=== PATIENT | female | born 1935 | race Caucasian/White ===

== ENCOUNTER 2017-12-13 11:46 | Emergency (ER) | payer MEDICARE, OTHER ==
[~2017-12-13] VITALS: Ht 160 cm; Wt 85.0 kg
[~2017-12-13 11:46] MED LIST: AMOX-367 PO; CALC-534 PO; CIPR250T2 PO; LEVO25TA4 PO; LISI5TAB7 PO; METF-366 PO; METR500T PO; OMEP-110 PO; SENN-92 PO; TRAM50TA2 PO; VITA100C8 PO; [UNRECOGNIZED DRUG - OTHER] PO
[2017-12-13] MEDS ORDERED: KETOROLAC 30 MG/1 ML ONE (12:30)
[2017-12-13] MEDS ORDERED: PLEASE ENTER HEIGHT AND WEIGHT MC SCH (12:30)
[2017-12-13] MEDS ORDERED: KETOROLAC 30 MG/1 ML IM ONE (12:30)
[2017-12-13 14:31] VITALS: BP 122/61
== END 2017-12-13 14:34 | disposition home or self-care (01) ==
LOC: ED 13:11
DX: M17.11 Unilateral primary osteoarthritis, right knee (principal); I10 Essential (primary) hypertension; I25.2 Old myocardial infarction; E11.9 Type 2 diabetes mellitus without complications
CPT/HCPCS: 93971; 96372; 99284; J1885

== ENCOUNTER → 2017-12-16 | Outpatient (CLI) | payer MEDICARE, OTHER | END | disposition home or self-care (01) | LOC: RAD 09:16 | PROVIDERS: ATTEND Family Medicine | DX: S83.281A Other tear of lateral meniscus, current injury, right knee, initial encounter (principal); M17.11 Unilateral primary osteoarthritis, right knee; M25.461 Effusion, right knee; X58.XXXA Exposure to other specified factors, initial encounter; Y93.89 Activity, other specified; Y92.89 Other specified places as the place of occurrence of the external cause; Y99.8 Other external cause status ==

== ENCOUNTER 2018-02-13 07:14 | Inpatient (IN) | payer MEDICARE, OTHER ==
[~2018-02-13] VITALS: Ht 160 cm; Wt 92.7 kg
[~2018-02-13 07:14] MED LIST changes: +ACET-1600 PO; +BRIM5DRO2 EACHEYE; +CYAN100072 PO; +EPINEPHRINE 1 MG/ML, 1ML ONE; +ERGO500017 PO; +FISH1CAP PO; +GLYB2.5T2 PO; +KETOROLAC 60 MG/2 ML ONE; +LACT1CAP35 PO; +LIDO700A42 TP; +LISI-167 PO; +LOVA40TA2 PO; +OMEG1CAP25 PO; +ROPIvacaine/PF 0.5%, 30 ML ONE; +SITA100T PO; +SODIUM CHLORIDE 0.9% 100 ML ONE; +TRANEXAMIC ACID 100 MG/ML, 10ML ONE; +VANCOMYCIN 1,000 MG ONE
[2018-02-13] MEDS ORDERED: FENTANYL PF 250 MCG/5ML ONE ×2 (07:21→08:58)
[2018-02-13] MEDS ORDERED: MIDAZOLAM 1 MG/ML, 2ML ONE (07:21)
[2018-02-13] MEDS ORDERED: CEFAZOLIN 1,000 MG ONE (07:24)
[2018-02-13] MEDS ORDERED: ROPIvacaine/PF 0.2%, 20 ML ONE (07:24)
[2018-02-13] MEDS ORDERED: PROPOFOL 10 MG/ML, 20ML ONE (07:24)
[2018-02-13] MEDS ORDERED: DEXAMETHASONE 4 MG/ML, 1ML ONE (07:24)
[2018-02-13] MEDS ORDERED: GLYCOPYRROLATE 0.2MG/1ML, 5ML ONE (07:24)
[2018-02-13] MEDS ORDERED: NEOSTIGMINE 1 MG/ML, 10ML ONE (07:24)
[2018-02-13] MEDS ORDERED: ROCURONIUM 10MG/ML,5ML ONE (07:24)
[2018-02-13] MEDS ORDERED: ONDANSETRON 2MG/ML, 2ML ONE (07:24)
[2018-02-13] MEDS ORDERED: LACTATED RINGERS 1,000 ML IV SCH (07:42)
[2018-02-13] MEDS ORDERED: ACETAMINOPHEN 500 MG TABLET PO ONE (08:00)
[2018-02-13] MEDS ORDERED: GABAPENTIN 300 MG CAPSULE PO ONE (08:00)
[2018-02-13] MEDS ORDERED: PROMETHAZINE 25 MG SUPP PR PRN (08:30)
[2018-02-13] MEDS ORDERED: MAGNESIUM HYDROXIDE 8%, 30ML UDC PO PRN (08:30)
[2018-02-13] MEDS ORDERED: hydrALAzine 20 MG/ML, 1ML IV PRN (08:30)
[2018-02-13] MEDS ORDERED: OXYcodone 5 MG/5 ML ORAL.SOL UDC PO PRN (08:30)
[2018-02-13] MEDS ORDERED: BISACODYL 10 MG SUPP PR PRN (08:30)
[2018-02-13] MEDS ORDERED: DIPHENHYDRAMINE 25 MG CAPSULE PO PRN (08:30)
[2018-02-13] MEDS ORDERED: ACETAMINOPHEN 650 MG/20.3 ML UDC PO PRN (08:30)
[2018-02-13] MEDS ORDERED: PROMETHAZINE 25 MG/ML, 1ML IM PRN ×2 (08:30)
[2018-02-13] MEDS ORDERED: SENNA/DOCUSATE TABLET PO PRN (08:30)
[2018-02-13] MEDS ORDERED: ONDANSETRON 2MG/ML, 2ML IV PRN ×2 (08:30)
[2018-02-13] MEDS ORDERED: ZOLPIDEM 5MG TABLET PO PRN (08:30)
[2018-02-13] MEDS ORDERED: ONDANSETRON ODT 8 MG PO PRN (08:30)
[2018-02-13] MEDS ORDERED: FENTANYL PF 100 MCG/2ML IV PRN (08:30)
[2018-02-13] MEDS ORDERED: HYDROmorphone 2 MG/ML, 1ML IV PRN (08:30)
[2018-02-13] MEDS ORDERED: HYDROmorphone 2 MG/ML, 1ML IVPush PRN (08:30)
[2018-02-13] MEDS ORDERED: PROMETHAZINE 25 MG/ML, 1ML IV PRN (08:30)
[2018-02-13] MEDS ORDERED: PROMETHAZINE 12.5 MG SUPP PR PRN (08:30)
[2018-02-13] MEDS ORDERED: LABETALOL 5MG/ML, 20ML IV PRN (08:30)
[2018-02-13] MEDS ORDERED: ONDANSETRON 4 MG TABLET PO PRN (08:30)
[2018-02-13] MEDS ORDERED: MORPHINE SULFATE 4 MG/ML, 1ML IVPush PRN (08:30)
[2018-02-13] MEDS ORDERED: MEPERIDINE/PF 25MG/0.5ML IVPush PRN (08:30)
[2018-02-13] MEDS ORDERED: HYDROcodone/APAP 5/325 TABLET PO PRN (08:30)
[2018-02-13] MEDS ORDERED: PHENYLEPHRINE 10 MG/ML ONE (08:33)
[2018-02-13] MEDS: TEMPLATE NON-FORMULARY MED. (Brimonidine Tartrate/Timolol (Combigan Eye Drops) 1 DROP) EACHEYE SCH ×2 (09:00→21:00)
[2018-02-13] MEDS: DOCUSATE 100 MG CAPSULE PO SCH ×2 (11:56→21:23)
[2018-02-13] MEDS: INSULIN LISPRO 100 UNITS/ML, PEN SQ-INSULIN SCH ×3 (12:07→21:00)
[2018-02-13 12:14] VITALS: BP_SYST 120; BP_DIAS 62; BP_DIAS 67
[2018-02-13] MEDS: NS + 20MEQ KCL 1,000 ML IV SCH (13:30)
[2018-02-13] MEDS: CEFAZOLIN PMX 2GM/50ML 50 ML IVPB SCH ×2 (15:17→22:50)
[2018-02-13] MEDS: ASPIRIN 81 MG TABLET EC PO SCH (17:56)
[2018-02-13 18:53] VITALS: BP 121/70
[2018-02-13] MEDS: OXYcodone IR 5MG TABLET PO PRN (19:48)
[2018-02-13] MEDS ORDERED: LOVASTATIN 40 MG TABLET PO SCH (21:00)
[2018-02-14] MEDS: OXYcodone IR 5MG TABLET PO PRN (00:19)
[2018-02-14 01:27] VITALS: BP 119/67
[2018-02-14] MEDS: NS + 20MEQ KCL 1,000 ML IV SCH (02:10)
[2018-02-14] MEDS: ASPIRIN 81 MG TABLET EC PO SCH (05:19)
[2018-02-14] MEDS ORDERED: DEXAMETHASONE 4 MG/ML, 1ML IVPush SCH (06:00)
[2018-02-14] MEDS ORDERED: OXYC5TAB2 PO (07:37)
[2018-02-14] MEDS ORDERED: TRAM50TA2 PO (07:38)
[2018-02-14] MEDS ORDERED: MELO7.5T31 PO (07:39)
[2018-02-14] MEDS: INSULIN LISPRO 100 UNITS/ML, PEN SQ-INSULIN SCH ×2 (07:40→11:44)
[2018-02-14] MEDS ORDERED: LISINOPRIL 10 MG TABLET PO SCH (09:00)
[2018-02-14] MEDS ORDERED: LEVOTHYROXINE 25 MCG TABLET PO SCH (09:00)
[2018-02-14] MEDS: TEMPLATE NON-FORMULARY MED. (Brimonidine Tartrate/Timolol (Combigan Eye Drops) 1 DROP) EACHEYE SCH (09:00)
[2018-02-14] MEDS ORDERED: OMEPRAZOLE 20 MG CAPSULE.DR PO SCH (09:00)
[2018-02-14] MEDS: DOCUSATE 100 MG CAPSULE PO SCH (09:26)
[2018-02-14 10:09] VITALS: BP 119/73
[2018-02-14 12:34] VITALS: BP 131/75
== END 2018-02-14 12:20 | disposition home or self-care (01) | DRG 470 ==
LOC: OUT 07:14 → ORIP 08:24 → 4NOR 11:06
PROVIDERS: ADMIT Orthopaedic Surgery; ATTEND Orthopaedic Surgery
PROC: 3E0T3BZ Introduction of Anesthetic Agent into Peripheral Nerves and Plexi, Percutaneous Approach (ICD-10-PCS; 2018-02-13)
PROC: 0SRC0J9 Replacement of Right Knee Joint with Synthetic Substitute, Cemented, Open Approach (ICD-10-PCS; principal; 2018-02-13 08:45)
DX: M17.11 Unilateral primary osteoarthritis, right knee (principal); E03.9 Hypothyroidism, unspecified; I10 Essential (primary) hypertension; K21.9 Gastro-esophageal reflux disease without esophagitis; I25.10 Atherosclerotic heart disease of native coronary artery without angina pectoris; I25.2 Old myocardial infarction; E11.9 Type 2 diabetes mellitus without complications; Z79.899 Other long term (current) drug therapy
CPT/HCPCS: 82962; 85014; 85018; C1713; G0378; J0171; J0690; J1100; J1885; J2250; J2405; J2704; J2710; J2795; J3010; J3370; J3480; J3490; C1776; J1815; J2370; J7120

== ENCOUNTER 2019-11-01 17:40 | Inpatient (IN) | payer MEDICARE, OTHER ==
[~2019-11-01] VITALS: Ht 160 cm; Wt 74.2 kg
[~2019-11-01 17:40] MED LIST changes: -EPINEPHRINE 1 MG/ML, 1ML ONE; -KETOROLAC 60 MG/2 ML ONE; +MELO7.5T31 PO; +OXYC5TAB2 PO; -ROPIvacaine/PF 0.5%, 30 ML ONE; -SODIUM CHLORIDE 0.9% 100 ML ONE; -TRANEXAMIC ACID 100 MG/ML, 10ML ONE; -VANCOMYCIN 1,000 MG ONE
--- NOTE | 2019-11-01 18:16 | NUR ---
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 JOSE
[2019-11-01 18:35] LABS: ALANINE AMINOTRANSFERASE 21 U/L (12-78); ALBUMIN 3.7 g/dL (3.4-5.0); ANION GAP 7 mmol/L (5-15); CALCIUM 10.1 mg/dL (8.5-10.1); CHLORIDE 109 mmol/L (98-107); CREATININE 1.21 mg/dL (0.55-1.02)
[2019-11-01 18:36] LABS: BASOPHILS # (AUTO) 0.05 x10^3/uL (0-0.1); BASOPHILS % (AUTO) 0 % (0-1); EOSINOPHILS # (AUTO) 0.24 x10^3/uL (0-0.4); EOSINOPHILS % (AUTO) 2 % (1-7); LYMPHOCYTES # (AUTO) 2.53 x10^3/uL (1-3.4); LYMPHOCYTES % (AUTO) 22 % (22-44); MD NO; MEAN CORPUSCULAR HEMOGLOBIN 31.4 pg (27.0-34.8); MEAN CORPUSCULAR HGB CONC 33.8 g/dL (32.4-35.8); MEAN CORPUSCULAR VOLUME 92.7 fL (80-100); MEAN PLATELET VOLUME 9.6 fL (7.4-10.4); MONOCYTES # (AUTO) 1.01 x10^3/uL (0.2-0.8); MONOCYTES % (AUTO) 9 % (2-9); NEUTROPHILS # (AUTO) 7.92 x10^3/uL (1.8-6.8); NEUTROPHILS % (AUTO) 67 % (42-75); PLATELET COUNT 171 x10^3/uL (130-400); RED BLOOD COUNT 4.69 x10^6/uL (3.82-5.3); RED CELL DISTRIBUTION WIDTH 12.8 % (9.6-15.2)
[2019-11-01 18:37] LABS: ALKALINE PHOSPHATASE 64 U/L (45-117); BILIRUBIN,TOTAL 0.7 mg/dL (0.2-1.0); TOTAL PROTEIN 8.3 g/dL (6.4-8.2)
--- NOTE | 2019-11-01 19:05 | NUR ---
assumed care of pt. pt here for cellulitis/abscess to R labia x2 months, getting significantly worse in the last 2 days. pt denies bleeding or drainage, no hematuria, denies painful urination. pt is not sexually active and denies any new sexual partners. pt reports that she has been seen by her primary doctor who initially told her to use powder, then was trying OTC cream for itching without relief labia and area around labia is red and swollen, red and hard, also tender to palpation
--- NOTE | 2019-11-01 19:15 | NUR ---
Charlee MCWILLIAMS has been to bedside for eval. setup completed for I&D
[2019-11-01] MEDS ORDERED: BUPIVACAINE 0.25% ONE (19:16)
[2019-11-01] MEDS ORDERED: BUPIVACAINE/PF-EPI 0.25% 1:200K INFIL ONE (19:30)
--- NOTE | 2019-11-01 19:32 | NUR ---
Bupivicaine to be adminstered by PA
[2019-11-01] MEDS ORDERED: MORPHINE SULFATE 4 MG/ML, 1ML ONE (19:49)
[2019-11-01] MEDS ORDERED: ONDANSETRON 2MG/ML, 2ML ONE (19:49)
[2019-11-01] MEDS ORDERED: ONDANSETRON 2MG/ML, 2ML IVPush ONE (20:00)
[2019-11-01] MEDS ORDERED: AMPICILLIN/SULBACTAM 3 GM in SODIUM CHLORIDE 0.9% 100 ML IV ONE (20:00)
[2019-11-01] MEDS ORDERED: MORPHINE SULFATE 4 MG/ML, 1ML IVPush PRN (20:00)
--- NOTE | 2019-11-01 20:05 | NUR ---
pt has been pre-medicated for bupivicaine adminstration and I&D procedure
--- NOTE | 2019-11-01 20:06 | NUR ---
Charlee MCWILLIAMS at bedside for Bupivicaine administration
--- NOTE | 2019-11-01 20:23 | NUR ---
I&D completed. ABX infusing. pt positioning and warm blankets given for comfort with Bear Hugger. pt to be admitted. updated on POC
--- NOTE | 2019-11-01 20:47 | NUR ---
ABX infusion completed Hospitalist at bedside to eval for admit pt to CT scan
[2019-11-01] MEDS ORDERED: OMNIPAQUE 350 MG/ML, 100ML BOTTLE ONE (20:59)
[2019-11-01 22:00] VITALS: BP 119/69
[2019-11-01 22:08] VITALS: BP 119/69
[2019-11-01] MEDS ORDERED: PHARMACY MAY ADJ FOR RENAL FX MC PRN (22:30)
[2019-11-01] MEDS ORDERED: ONDANSETRON ODT 4 MG PO PRN (22:30)
[2019-11-01] MEDS ORDERED: LIDODERM 5% PATCH TD PRN (22:30)
[2019-11-01] MEDS ORDERED: MELATONIN 5 MG TABLET PO PRN (22:30)
[2019-11-01] MEDS ORDERED: hydrALAzine 20 MG/ML, 1ML IVPush PRN (22:30)
[2019-11-01] MEDS ORDERED: DOCUSATE 100 MG CAPSULE PO PRN (22:30)
[2019-11-01] MEDS: HEPARIN 5,000 UNITS/ML, 1ML SQ SCH (23:17)
[2019-11-01] MEDS ORDERED: OMEG1CAP23 PO (23:30)
[2019-11-01] MEDS ORDERED: OXYB5TAB10 PO (23:30)
[2019-11-01] MEDS ORDERED: EMPA10TA PO (23:30)
[2019-11-01] MEDS ORDERED: GABA-826 PO (23:30)
[2019-11-02] MEDS: GABAPENTIN 100 MG CAPSULE PO SCH ×2 (01:00→19:57)
[2019-11-02] MEDS: TEMPLATE NON-FORMULARY MED. (Brimonidine Tartrate/Timolol (Combigan Eye Drops) 1 DROP) EACHEYE SCH ×2 (01:00→19:56)
[2019-11-02 01:46] VITALS: BP 114/72
[2019-11-02] MEDS ORDERED: AMPICILLIN/SULBACTAM 3 GM in SODIUM CHLORIDE 0.9% 100 ML IV SCH (03:30)
[2019-11-02] MEDS: ACETAMINOPHEN 325 MG TABLET PO PRN ×3 (04:57→19:46)
[2019-11-02 05:43] LABS: BASOPHILS # (AUTO) 0.04 x10^3/uL (0-0.1); BASOPHILS % (AUTO) 1 % (0-1); EOSINOPHILS # (AUTO) 0.26 x10^3/uL (0-0.4); EOSINOPHILS % (AUTO) 3 % (1-7); LYMPHOCYTES # (AUTO) 2.65 x10^3/uL (1-3.4); LYMPHOCYTES % (AUTO) 27 % (22-44); MD NO; MEAN CORPUSCULAR HEMOGLOBIN 31.4 pg (27.0-34.8); MEAN CORPUSCULAR HGB CONC 33.7 g/dL (32.4-35.8); MEAN CORPUSCULAR VOLUME 93.2 fL (80-100); MEAN PLATELET VOLUME 9.6 fL (7.4-10.4); MONOCYTES # (AUTO) 0.84 x10^3/uL (0.2-0.8); MONOCYTES % (AUTO) 9 % (2-9); NEUTROPHILS # (AUTO) 6.02 x10^3/uL (1.8-6.8); NEUTROPHILS % (AUTO) 61 % (42-75); PLATELET COUNT 160 x10^3/uL (130-400); RED BLOOD COUNT 4.47 x10^6/uL (3.82-5.3); RED CELL DISTRIBUTION WIDTH 12.8 % (9.6-15.2)
[2019-11-02 06:01] LABS: CHLORIDE 111 mmol/L (98-107)
[2019-11-02 06:11] LABS: ANION GAP 7 mmol/L (5-15); CALCIUM 9.3 mg/dL (8.5-10.1); CREATININE 1.09 mg/dL (0.55-1.02)
[2019-11-02] MEDS: HEPARIN 5,000 UNITS/ML, 1ML SQ SCH ×3 (06:26→22:34)
[2019-11-02 08:00] VITALS: BP 141/82
[2019-11-02] MEDS: NYSTATIN CRM 15GM TP SCH ×2 (09:00→20:37)
[2019-11-02] MEDS: TEMPLATE NON-FORMULARY MED. (Empagliflozin (Jardiance) 1 TAB) HOMEMEDPO SCH (09:00)
[2019-11-02] MEDS: OMEGA-3/FISH OIL CAPSULE PO SCH (09:12)
[2019-11-02] MEDS: OXYBUTYNIN CHLORIDE 5 MG TABLET PO SCH (09:12)
[2019-11-02] MEDS: LOVASTATIN 40 MG TABLET PO SCH (09:12)
[2019-11-02] MEDS ORDERED: SENNA/DOCUSATE TABLET ONE (11:51)
[2019-11-02] MEDS ORDERED: SENNA/DOCUSATE TABLET PO PRN (12:00)
[2019-11-02 13:47] VITALS: BP 138/78
[2019-11-02] MEDS: AMOXICILLIN/CLAV 875-125MG TABLET PO SCH (20:37)
[2019-11-02 20:58] VITALS: BP 115/69
[2019-11-03 00:23] VITALS: BP 103/64
[2019-11-03 05:55] LABS: CALCIUM 9.7 mg/dL (8.5-10.1); CHLORIDE 112 mmol/L (98-107)
[2019-11-03 05:58] LABS: ANION GAP 5 mmol/L (5-15); CREATININE 1.27 mg/dL (0.55-1.02)
[2019-11-03] MEDS: HEPARIN 5,000 UNITS/ML, 1ML SQ SCH ×2 (06:11→15:23)
[2019-11-03 07:34] VITALS: BP 121/75
[2019-11-03] MEDS: NYSTATIN CRM 15GM TP SCH (09:00)
[2019-11-03] MEDS: TEMPLATE NON-FORMULARY MED. (Empagliflozin (Jardiance) 1 TAB) HOMEMEDPO SCH (09:00)
[2019-11-03] MEDS: LOVASTATIN 40 MG TABLET PO SCH (09:03)
[2019-11-03] MEDS: AMOXICILLIN/CLAV 875-125MG TABLET PO SCH (09:03)
[2019-11-03] MEDS: OXYBUTYNIN CHLORIDE 5 MG TABLET PO SCH (09:03)
[2019-11-03] MEDS: OMEGA-3/FISH OIL CAPSULE PO SCH (09:04)
[2019-11-03] MEDS ORDERED: AMOX1TAB12 PO (11:31)
[2019-11-03 13:53] VITALS: BP 126/76
== END 2019-11-03 17:52 | disposition home health service (06) | DRG 746 ==
LOC: ED 19:29 → EDIP 19:35 → ED 19:42 → 3N 21:20
PROVIDERS: ADMIT Student in an Organized Health Care Education/Training Program; ATTEND Family Medicine
PROC: 0W9N0ZZ Drainage of Female Perineum, Open Approach (ICD-10-PCS; principal; 2019-11-01)
DX: N76.4 Abscess of vulva (principal); N17.0 Acute kidney failure with tubular necrosis; N76.2 Acute vulvitis; E11.9 Type 2 diabetes mellitus without complications; E03.9 Hypothyroidism, unspecified; E78.5 Hyperlipidemia, unspecified; G62.9 Polyneuropathy, unspecified; I10 Essential (primary) hypertension; Z66 Do not resuscitate; M19.90 Unspecified osteoarthritis, unspecified site; Z90.49 Acquired absence of other specified parts of digestive tract; I25.2 Old myocardial infarction; Z98.49 Cataract extraction status, unspecified eye; Z80.9 Family history of malignant neoplasm, unspecified; Z80.52 Family history of malignant neoplasm of bladder
CPT/HCPCS: 36415; 72193; 80048; 80053; 85025; 96374; 96375; 99285; G0378; J0295; J1644; J2405; Q9967; J2270

== ENCOUNTER → 2020-03-16 | Outpatient (CLI) | payer MEDICARE, OTHER ==
[~2020-03-16] MED LIST changes: +AMOX1TAB12 PO; +EMPA10TA PO; +GABA-826 PO; +OMEG1CAP23 PO; +OXYB5TAB10 PO; +REGADENOSON 0.4 MG/5 ML SYRINGE ONE; +VITA100C10 PO; -VITA100C8 PO
== END | disposition home or self-care (01) ==
LOC: CFH 12:01
PROVIDERS: ATTEND Internal Medicine Cardiovascular Disease
DX: I35.1 Nonrheumatic aortic (valve) insufficiency (principal); R07.89 Other chest pain
CPT/HCPCS: 78452; 93017; A9502; J2785

== ENCOUNTER → 2020-03-23 | Outpatient (CLI) | payer MEDICARE, OTHER ==
[~2020-03-23] MED LIST changes: -REGADENOSON 0.4 MG/5 ML SYRINGE ONE
== END | disposition home or self-care (01) ==
LOC: CFH 07:39
PROVIDERS: ATTEND Internal Medicine Cardiovascular Disease
DX: I08.3 Combined rheumatic disorders of mitral, aortic and tricuspid valves (principal); I25.2 Old myocardial infarction; E11.9 Type 2 diabetes mellitus without complications; I11.9 Hypertensive heart disease without heart failure
CPT/HCPCS: 93306

== ENCOUNTER 2020-07-02 10:38 | Emergency (ER) | payer MEDICARE, OTHER ==
[~2020-07-02] VITALS: Ht 160 cm; Wt 79.9 kg
--- NOTE | 2020-07-02 10:56 | NUR ---
PT C/O OF BURNING PAIN IN LEFT KNEE FOR THE LAST 10 DAYS. PAIN HAS PROGRESSIVELY BEEN GETTING WORSE. CONTINUOUS PAIN. PRESSURE ON KNEE MAKES IT WORSE. ICE HELPS RELIEVE PAIN. CMS IN LEFT FOOT. NO REDNESS OR WARMT NOTED. DENIES CP OR SOB.
--- NOTE | 2020-07-02 11:18 | NUR ---
PT DENIES INJURY TO LEG. BS 204 FINGERSTICK PT OFF UNIT IN IMAGING.
--- NOTE | 2020-07-02 11:48 | NUR ---
PT RESTING IN BED. ATTACHED TO MONITORS. VSS. PT IN NAD. ICE PACK ON ON LEFT KNEE.
--- NOTE | 2020-07-02 12:30 | NUR ---
PT AMBULATED DOWN HALLWAY AND BACK TO ROOM. TOLERATED WELL. CALLING SON FOR RIDE HOME. VSS.
[2020-07-02 12:31] VITALS: BP 134/45
== END 2020-07-02 12:51 | disposition home or self-care (01) ==
LOC: ED 11:57
DX: M17.32 Unilateral post-traumatic osteoarthritis, left knee (principal); E11.9 Type 2 diabetes mellitus without complications; I25.2 Old myocardial infarction; I10 Essential (primary) hypertension; Z96.651 Presence of right artificial knee joint
CPT/HCPCS: 82962; 99283